=== PATIENT | male | born 1955 | race Caucasian/White ===

== ENCOUNTER 2020-03-02 13:37 | Inpatient (IN) | payer OTHER, SELFPAY ==
[~2020-03-02] VITALS: Ht 175.3 cm; Wt 117.5 kg
--- NOTE | 2020-03-02 14:05 | NUR ---
THIS IS A 65 YO MALE BIB [facility] FROM WORK AFTER FALLING OFF 4-5 FOOT LEDGE AND LANDED ON ANKLES. SPLINT TO RIGHT ANKLE IN PLACE BY MIKAYLA, CSM INTACT IN BILATERAL LE. C/O PAIN TO BOTH ANKLES, UNABLE TO TOLERATE WEIGHT. EQUAL STRENGTH BILATERALLY. DENIES HITTING HEAD, DENIES NECK OR BACK PAIN. BILATERAL LOWER LEG EDEMA PRESENT, PATIENT STATES IT HAS BEEN LIKE THAT FOR MONTHS, RECENT MRI DONE AT [facility] TO ANKLES, SENT HOME ON ANTI-INFLAMMATORIES. DENIES ANY OTHER MEDICAL PROBLEMS. PATIENT AT 88% ON RA WITH [facility], THEY PLACED HIM ON 2L NC, AT 94%. RA TEST HERE, PATIENT DESAT TO 88%, PLACED BACK ON 2L. [facility] GAVE 100MCG FENTANYL. ER PA TO ROOM FOR EVAL. MONITORING IN PLACE, DENA DENT AT THIS TIME. REPORT TO PURVI BATISTA
--- NOTE | 2020-03-02 14:07 | NUR ---
REPORT RECIEVED FROM JOSELINE RN, ASSUMED CARE OF PT AT THIS TIME. TRIAL PT ON RA, PT SATING 86%, PLANNED ON 2.5L AT THIS TIME NOW SATING 96%, ERP MADE AWARE
[2020-03-02] MEDS ORDERED: MORPHINE SULFATE 4 MG/ML, 1ML ONE ×2 (15:13→18:33)
[2020-03-02] MEDS: MORPHINE SULFATE 4 MG/ML, 1ML IVPush PRN ×2 (15:26→18:38)
--- NOTE | 2020-03-02 15:27 | NUR ---
ERMD IN TO UPDATE PT ON POC, ORTHO TO BE CONSULTED. VSS, PT MEDICATED FOR PAIN VIA MAR
[2020-03-02] MEDS ORDERED: SODIUM CHLORIDE FLUSH 10ML SYR IVF ONE (16:00)
--- NOTE | 2020-03-02 16:15 | NUR ---
EMT IN TO APPLY SPLINTS TO BLE
[2020-03-02 16:21] LABS: ALBUMIN 3.8 g/dL (3.4-5.0); ANION GAP 4 mmol/L (5-15); CALCIUM 8.5 mg/dL (8.5-10.1); CHLORIDE 110 mmol/L (98-107)
[2020-03-02 16:26] LABS: ALANINE AMINOTRANSFERASE 30 U/L (12-78); ALKALINE PHOSPHATASE 90 U/L (45-117); BILIRUBIN,TOTAL 0.8 mg/dL (0.2-1.0); CREATININE 0.98 mg/dL (0.7-1.3)
[2020-03-02 17:00] LABS: BASOPHILS % (AUTO) 1 % (0-1); EOSINOPHILS % (AUTO) 1 % (1-7); LYMPHOCYTES % (AUTO) 6 % (22-44); MEAN CORPUSCULAR HEMOGLOBIN 28.9 pg (27.5-34.5); MEAN CORPUSCULAR HGB CONC 31.8 g/dL (33.2-36.2); MEAN PLATELET VOLUME 7.5 fL (7.4-10.4); MONOCYTES % (AUTO) 6 % (2-9); NEUTROPHILS % (AUTO) 86 % (42-75); PLATELET COUNT 250 x10^3/uL (130-400); RED BLOOD COUNT 5.16 x10^6/uL (4.38-5.82); RED CELL DISTRIBUTION WIDTH 14.2 % (9.4-14.8)
[2020-03-02] MEDS ORDERED: OXYcodone/APAP 10/325MG TABLET PO ONE (17:00)
[2020-03-02 17:09] LABS: MD SCAN
[2020-03-02] MEDS ORDERED: OXYcodone/APAP 10/325MG TABLET ONE (17:20)
--- NOTE | 2020-03-02 18:22 | NUR ---
HEALS FLOATED WITH PILLOWS FOR COMFORT. VSS, NAD NOTED
--- NOTE | 2020-03-02 18:52 | NUR ---
REPORT RECEIVED FROM PURVI BATISTA. PLAN OF CARE DISCUSSED
[2020-03-02] MEDS ORDERED: LABETALOL 5MG/ML, 20ML IVPush PRN (19:00)
[2020-03-02] MEDS ORDERED: ACETAMINOPHEN 325 MG TABLET PO PRN (19:00)
[2020-03-02] MEDS ORDERED: SODIUM CHLORIDE 0.9% 1,000 ML IV SCH (19:00)
--- NOTE | 2020-03-02 19:35 | NUR ---
REPORT GIVEN TO PURVI HARMON. PLAN OF CARE DISCUSSED
[2020-03-02 20:57] VITALS: BP 136/77
[2020-03-02] MEDS ORDERED: NICOTINE 21 MG/24 HR PATCH.TD24 TD ONE (21:00)
[2020-03-02] MEDS: HYDROcodone/APAP 5/325 TABLET PO PRN (21:02)
[2020-03-02 21:08] VITALS: BP 140/85
[2020-03-02] MEDS: morphine SULFATE 10 MG/ML, 1ML IVPush PRN (21:31)
[2020-03-02] MEDS: HEPARIN 5,000 UNITS/ML, 1ML SQ SCH (21:42)
[2020-03-02 22:48] LABS: MICROSCOPIC NOT IND
[2020-03-03 01:24] VITALS: BP 130/77
[2020-03-03] MEDS: HYDROcodone/APAP 5/325 TABLET PO PRN ×2 (01:27→06:24)
[2020-03-03 03:19] VITALS: BP 118/68
[2020-03-03 06:07] LABS: BASOPHILS % (AUTO) 1 % (0-1); EOSINOPHILS % (AUTO) 1 % (1-7); LYMPHOCYTES % (AUTO) 9 % (22-44); MEAN CORPUSCULAR HEMOGLOBIN 29.5 pg (27.5-34.5); MEAN CORPUSCULAR HGB CONC 32.5 g/dL (33.2-36.2); MEAN PLATELET VOLUME 6.9 fL (7.4-10.4); MONOCYTES % (AUTO) 12 % (2-9); NEUTROPHILS % (AUTO) 77 % (42-75); PLATELET COUNT 240 x10^3/uL (130-400); RED BLOOD COUNT 4.67 x10^6/uL (4.38-5.82)
[2020-03-03 06:10] LABS: ANION GAP 5 mmol/L (5-15); CALCIUM 8.3 mg/dL (8.5-10.1); CHLORIDE 107 mmol/L (98-107); CREATININE 0.79 mg/dL (0.7-1.3)
[2020-03-03 06:17] LABS: MD NO
[2020-03-03] MEDS: HEPARIN 5,000 UNITS/ML, 1ML SQ SCH ×3 (06:25→20:33)
[2020-03-03 06:34] VITALS: BP 124/70
[2020-03-03] MEDS: morphine SULFATE 10 MG/ML, 1ML IVPush PRN ×4 (07:39→20:33)
[2020-03-03] MEDS ORDERED: NICOTINE 14MG/24 HR PATCH.TD24 TD SCH (09:00)
[2020-03-03] MEDS: FUROSEMIDE 20 MG TABLET PO SCH (09:41)
[2020-03-03] MEDS ORDERED: POLYETHYLENE GLYCOL 17 GM PACKET PO PRN (11:00)
[2020-03-03 15:03] VITALS: BP 130/70
[2020-03-03 19:03] VITALS: BP 149/81
[2020-03-03] MEDS: SENNA/DOCUSATE TABLET PO SCH (20:33)
[2020-03-03] MEDS: NICOTINE 21 MG/24 HR PATCH.TD24 TD SCH (21:52)
[2020-03-03] MEDS ORDERED: AZITHROMYCIN 500 MG in SODIUM CHLORIDE 0.9% 250 ML IV SCH (23:30)
[2020-03-03] MEDS ORDERED: CEFTRIAXONE PMX 1GM/50ML 50 ML IV SCH (23:30)
[2020-03-04 01:00] VITALS: BP 143/88
[2020-03-04] MEDS: HEPARIN 5,000 UNITS/ML, 1ML SQ SCH (05:19)
[2020-03-04 06:25] VITALS: BP 141/48
[2020-03-04 07:35] LABS: BASOPHILS % (AUTO) 0 % (0-1); EOSINOPHILS % (AUTO) 0 % (1-7); LYMPHOCYTES % (AUTO) 3 % (22-44); MEAN CORPUSCULAR HEMOGLOBIN 29.5 pg (27.5-34.5); MEAN CORPUSCULAR HGB CONC 32.2 g/dL (33.2-36.2); MEAN PLATELET VOLUME 6.8 fL (7.4-10.4); MONOCYTES % (AUTO) 10 % (2-9); NEUTROPHILS % (AUTO) 88 % (42-75); PLATELET COUNT 237 x10^3/uL (130-400); RED BLOOD COUNT 4.91 x10^6/uL (4.38-5.82); RED CELL DISTRIBUTION WIDTH 14.4 % (9.4-14.8)
[2020-03-04 07:38] LABS: ALANINE AMINOTRANSFERASE 26 U/L (12-78); ALBUMIN 3.5 g/dL (3.4-5.0); ANION GAP 5 mmol/L (5-15); CALCIUM 8.4 mg/dL (8.5-10.1); CHLORIDE 101 mmol/L (98-107); CREATININE 1.06 mg/dL (0.7-1.3)
[2020-03-04 07:40] LABS: ALKALINE PHOSPHATASE 84 U/L (45-117); BILIRUBIN,TOTAL 1.6 mg/dL (0.2-1.0); TOTAL PROTEIN 8.6 g/dL (6.4-8.2)
[2020-03-04] MEDS: AMPICILLIN/SULBACTAM 3 GM in SODIUM CHLORIDE 0.9% 100 ML IV SCH ×3 (08:12→20:55)
[2020-03-04] MEDS: FUROSEMIDE 20 MG TABLET PO SCH (08:13)
[2020-03-04] MEDS: SENNA/DOCUSATE TABLET PO SCH ×2 (08:14→21:23)
[2020-03-04 08:28] LABS: MD SCAN
[2020-03-04] MEDS: LACTOBACILLUS CHEW TABLET PO SCH ×3 (11:00→21:22)
[2020-03-04] MEDS: ENOXAPARIN 30 MG/0.3 ML SQ SCH ×2 (12:09→21:23)
[2020-03-04] MEDS: ONDANSETRON 2MG/ML, 2ML IVPush PRN (12:12)
[2020-03-04 15:32] LABS: C-REACTIVE PROTEIN, QUANT > 19.00 mg/dL (0.02-0.49)
[2020-03-04] MEDS: MIDODRINE 5 MG TABLET PO SCH ×2 (16:33→21:23)
[2020-03-04] MEDS ORDERED: PHARMACOKINETIC CONSULTATION MC ONE (18:00)
[2020-03-04] MEDS ORDERED: PHARMACOKINETIC MONITORING MC PRN (18:00)
[2020-03-04] MEDS ORDERED: VANCOMYCIN PER PHARMACY MC PRN (18:00)
[2020-03-04] MEDS ORDERED: VANCOMYCIN 3,000 MG in SODIUM CHLORIDE 0.9% 500 ML IV ONE (18:00)
[2020-03-04 20:25] LABS: MICROSCOPIC AUTO
[2020-03-04] MEDS: NICOTINE 21 MG/24 HR PATCH.TD24 TD SCH (21:23)
[2020-03-05] MEDS: AMPICILLIN/SULBACTAM 3 GM in SODIUM CHLORIDE 0.9% 100 ML IV SCH ×4 (02:18→21:35)
[2020-03-05] MEDS: morphine SULFATE 10 MG/ML, 1ML IVPush PRN (02:33)
[2020-03-05 04:03] VITALS: BP 149/79
[2020-03-05 04:59] LABS: BASOPHILS % (AUTO) 1 % (0-1); EOSINOPHILS % (AUTO) 0 % (1-7); LYMPHOCYTES % (AUTO) 7 % (22-44); MEAN CORPUSCULAR HEMOGLOBIN 29.8 pg (27.5-34.5); MEAN PLATELET VOLUME 6.9 fL (7.4-10.4); MONOCYTES % (AUTO) 11 % (2-9); NEUTROPHILS % (AUTO) 82 % (42-75); PLATELET COUNT 199 x10^3/uL (130-400); RED BLOOD COUNT 4.28 x10^6/uL (4.38-5.82); RED CELL DISTRIBUTION WIDTH 13.8 % (9.4-14.8)
[2020-03-05] MEDS: LACTOBACILLUS CHEW TABLET PO SCH ×4 (05:15→19:23)
[2020-03-05 05:17] LABS: ANION GAP 2 mmol/L (5-15); CALCIUM 8.2 mg/dL (8.5-10.1); CHLORIDE 100 mmol/L (98-107); CREATININE 0.79 mg/dL (0.7-1.3)
[2020-03-05 06:04] LABS: MD SCAN
[2020-03-05] MEDS: LORATADINE 10 MG TABLET PO SCH (08:51)
[2020-03-05] MEDS: THIAMINE 100MG TABLET PO SCH (08:51)
[2020-03-05] MEDS: SENNA/DOCUSATE TABLET PO SCH ×3 (08:51→21:42)
[2020-03-05] MEDS: LIDODERM 5% PATCH TD SCH (08:53)
[2020-03-05] MEDS: FLUTICASONE NASAL SPRAY 16GM NAS SCH (08:53)
[2020-03-05] MEDS ORDERED: LIDODERM 5% PATCH TD SCH (09:00)
[2020-03-05] MEDS ORDERED: FUROSEMIDE 40 MG/4 ML ONE (10:49)
[2020-03-05] MEDS: ENOXAPARIN 30 MG/0.3 ML SQ SCH ×2 (10:53→21:36)
[2020-03-05] MEDS ORDERED: FUROSEMIDE 40 MG/4 ML IV ONE (11:00)
[2020-03-05 12:15] LABS: HCT (SEDRATE) 38.7 % (39.2-51.8)
[2020-03-05 14:17] VITALS: BP 114/74
[2020-03-05] MEDS: VANCOMYCIN 2,000 MG in SODIUM CHLORIDE 0.9% 500 ML IV SCH (16:09)
[2020-03-05 20:08] VITALS: BP 123/74
[2020-03-05] MEDS: LIDODERM REMOVE PATCH NOTE XX SCH (21:00)
[2020-03-05] MEDS: NICOTINE 21 MG/24 HR PATCH.TD24 TD SCH (21:36)
[2020-03-06 00:46] VITALS: BP 108/64
[2020-03-06] MEDS: ONDANSETRON 2MG/ML, 2ML IVPush PRN (01:41)
[2020-03-06] MEDS: AMPICILLIN/SULBACTAM 3 GM in SODIUM CHLORIDE 0.9% 100 ML IV SCH ×3 (04:57→17:30)
[2020-03-06 05:52] LABS: BASOPHILS % (AUTO) 0 % (0-1); EOSINOPHILS % (AUTO) 2 % (1-7); LYMPHOCYTES % (AUTO) 6 % (22-44); MEAN CORPUSCULAR HEMOGLOBIN 29.7 pg (27.5-34.5); MEAN CORPUSCULAR HGB CONC 33.1 g/dL (33.2-36.2); MEAN PLATELET VOLUME 7.2 fL (7.4-10.4); MONOCYTES % (AUTO) 9 % (2-9); NEUTROPHILS % (AUTO) 82 % (42-75); PLATELET COUNT 218 x10^3/uL (130-400); RED CELL DISTRIBUTION WIDTH 13.5 % (9.4-14.8)
[2020-03-06 05:57] LABS: MD NO
[2020-03-06] MEDS: LACTOBACILLUS CHEW TABLET PO SCH ×4 (06:00→21:43)
[2020-03-06 06:04] LABS: CHLORIDE 99 mmol/L (98-107)
[2020-03-06 06:13] LABS: ANION GAP 3 mmol/L (5-15); CALCIUM 8.5 mg/dL (8.5-10.1); CREATININE 0.77 mg/dL (0.7-1.3)
[2020-03-06] MEDS: VANCOMYCIN 2,000 MG in SODIUM CHLORIDE 0.9% 500 ML IV SCH ×2 (06:40→19:50)
[2020-03-06 08:17] VITALS: BP 126/85
[2020-03-06] MEDS: SENNA/DOCUSATE TABLET PO SCH ×2 (08:29→21:42)
[2020-03-06] MEDS: METHYLNALTREXONE 12 MG/0.6 ML SYR SQ SCH (08:30)
[2020-03-06] MEDS: POLYETHYLENE GLYCOL 17 GM PACKET PO SCH ×3 (08:30→21:00)
[2020-03-06] MEDS: LORATADINE 10 MG TABLET PO SCH (08:30)
[2020-03-06] MEDS: THIAMINE 100MG TABLET PO SCH (08:30)
[2020-03-06] MEDS: LIDODERM 5% PATCH TD SCH (08:31)
[2020-03-06] MEDS: FLUTICASONE NASAL SPRAY 16GM NAS SCH (08:32)
[2020-03-06] MEDS: ENOXAPARIN 30 MG/0.3 ML SQ SCH (11:53)
[2020-03-06 13:49] VITALS: BP 128/74
[2020-03-06 19:15] VITALS: BP 132/76
[2020-03-06] MEDS: LIDODERM REMOVE PATCH NOTE XX SCH (21:00)
[2020-03-06] MEDS: NICOTINE 21 MG/24 HR PATCH.TD24 TD SCH (21:42)
[2020-03-07] MEDS: AMPICILLIN/SULBACTAM 3 GM in SODIUM CHLORIDE 0.9% 100 ML IV SCH ×4 (00:20→18:07)
[2020-03-07] MEDS: ENOXAPARIN 30 MG/0.3 ML SQ SCH ×2 (00:30→11:32)
[2020-03-07 02:48] VITALS: BP 114/72
[2020-03-07] MEDS: FLUTICASONE NASAL SPRAY 16GM NAS SCH (04:19)
[2020-03-07 05:13] LABS: BASOPHILS % (AUTO) 1 % (0-1); EOSINOPHILS % (AUTO) 3 % (1-7); LYMPHOCYTES % (AUTO) 8 % (22-44); MEAN CORPUSCULAR HEMOGLOBIN 29.2 pg (27.5-34.5); MEAN CORPUSCULAR HGB CONC 32.6 g/dL (33.2-36.2); MONOCYTES % (AUTO) 8 % (2-9); NEUTROPHILS % (AUTO) 81 % (42-75); PLATELET COUNT 222 x10^3/uL (130-400); RED BLOOD COUNT 4.25 x10^6/uL (4.38-5.82); RED CELL DISTRIBUTION WIDTH 13.8 % (9.4-14.8)
[2020-03-07 05:17] LABS: ANION GAP 3 mmol/L (5-15); CALCIUM 8.8 mg/dL (8.5-10.1); CHLORIDE 103 mmol/L (98-107); CREATININE 0.76 mg/dL (0.7-1.3)
[2020-03-07 05:26] LABS: MD NO
[2020-03-07 06:25] VITALS: BP 124/73
[2020-03-07] MEDS: LACTOBACILLUS CHEW TABLET PO SCH ×4 (07:44→20:18)
[2020-03-07] MEDS ORDERED: MAGNESIUM CITRATE 300ML ORAL SOL PO ONE (08:00)
[2020-03-07] MEDS: SENNA/DOCUSATE TABLET PO SCH ×2 (08:04→21:00)
[2020-03-07] MEDS: VANCOMYCIN 2,000 MG in SODIUM CHLORIDE 0.9% 500 ML IV SCH ×2 (08:04→20:18)
[2020-03-07] MEDS: LORATADINE 10 MG TABLET PO SCH (08:04)
[2020-03-07] MEDS: POLYETHYLENE GLYCOL 17 GM PACKET PO SCH ×2 (08:05→21:00)
[2020-03-07] MEDS: THIAMINE 100MG TABLET PO SCH (08:05)
[2020-03-07] MEDS: LIDODERM 5% PATCH TD SCH (08:05)
[2020-03-07 13:10] VITALS: BP 144/87
[2020-03-07] MEDS: FUROSEMIDE 40 MG/4 ML IV SCH (16:41)
[2020-03-07] MEDS: CETIRIZINE 10 MG TABLET PO SCH (16:41)
[2020-03-07] MEDS ORDERED: HOLD MEDICATION MC PRN (18:30)
[2020-03-07] MEDS: NICOTINE 21 MG/24 HR PATCH.TD24 TD SCH (20:18)
[2020-03-07 20:42] VITALS: BP 125/80
[2020-03-07] MEDS: LIDODERM REMOVE PATCH NOTE XX SCH (21:00)
[2020-03-07] MEDS ORDERED: ENOXAPARIN 30 MG/0.3 ML SQ ONE (23:30)
[2020-03-08] MEDS: FLUTICASONE NASAL SPRAY 16GM NAS SCH (00:16)
[2020-03-08] MEDS: AMPICILLIN/SULBACTAM 3 GM in SODIUM CHLORIDE 0.9% 100 ML IV SCH ×4 (00:19→20:30)
[2020-03-08] MEDS ORDERED: SODIUM CHLORIDE NASAL SPRAY 45ML BOTTLE NAS PRN (02:00)
[2020-03-08 02:17] VITALS: BP 126/76
[2020-03-08] MEDS: OXYMETAZOLINE NASAL SPRAY 0.05%, 15ML NAS SCH ×3 (02:26→21:00)
[2020-03-08] MEDS: LACTOBACILLUS CHEW TABLET PO SCH ×4 (05:53→22:14)
[2020-03-08 06:25] LABS: BASOPHILS % (AUTO) 1 % (0-1); EOSINOPHILS % (AUTO) 2 % (1-7); LYMPHOCYTES % (AUTO) 8 % (22-44); MEAN CORPUSCULAR HEMOGLOBIN 29.5 pg (27.5-34.5); MEAN PLATELET VOLUME 7.2 fL (7.4-10.4); MONOCYTES % (AUTO) 9 % (2-9); NEUTROPHILS % (AUTO) 80 % (42-75); PLATELET COUNT 275 x10^3/uL (130-400); RED BLOOD COUNT 4.61 x10^6/uL (4.38-5.82); RED CELL DISTRIBUTION WIDTH 13.4 % (9.4-14.8)
[2020-03-08 06:34] LABS: MD NO
[2020-03-08 06:40] LABS: CHLORIDE 102 mmol/L (98-107)
[2020-03-08 07:00] LABS: ANION GAP 4 mmol/L (5-15); CALCIUM 8.6 mg/dL (8.5-10.1); CREATININE 0.78 mg/dL (0.7-1.3)
[2020-03-08] MEDS: SENNA/DOCUSATE TABLET PO SCH ×2 (08:20→22:14)
[2020-03-08] MEDS: CETIRIZINE 10 MG TABLET PO SCH (08:20)
[2020-03-08] MEDS: THIAMINE 100MG TABLET PO SCH (08:20)
[2020-03-08] MEDS: FUROSEMIDE 40 MG/4 ML IV SCH ×2 (08:21→17:00)
[2020-03-08] MEDS: VANCOMYCIN 2,000 MG in SODIUM CHLORIDE 0.9% 500 ML IV SCH ×2 (08:21→22:14)
[2020-03-08] MEDS: METHYLNALTREXONE 12 MG/0.6 ML SYR SQ SCH (08:21)
[2020-03-08] MEDS: POLYETHYLENE GLYCOL 17 GM PACKET PO SCH ×2 (08:24→21:00)
[2020-03-08] MEDS: LIDODERM 5% PATCH TD SCH (09:00)
[2020-03-08 09:01] VITALS: BP 146/82
[2020-03-08 13:38] VITALS: BP 134/83
[2020-03-08] MEDS ORDERED: CHLORHEXIDINE 15 ML UDC ONE (15:07)
[2020-03-08] MEDS ORDERED: BUPIVACAINE/PF 0.5% ONE (15:20)
[2020-03-08] MEDS ORDERED: MIDAZOLAM 1 MG/ML, 2ML ONE (15:23)
[2020-03-08] MEDS ORDERED: FENTANYL PF 100 MCG/2ML ONE (15:23)
[2020-03-08] MEDS ORDERED: ONDANSETRON 2MG/ML, 2ML IVPush PRN (15:30)
[2020-03-08] MEDS ORDERED: PROMETHAZINE 25 MG/ML, 1ML IVPush PRN (15:30)
[2020-03-08] MEDS ORDERED: OXYcodone 5 MG/5 ML ORAL.SOL UDC PO PRN (15:30)
[2020-03-08] MEDS ORDERED: CHLORHEXIDINE 15 ML UDC MM ONE (15:30)
[2020-03-08] MEDS ORDERED: LACTATED RINGERS 1,000 ML IV SCH (15:30)
[2020-03-08] MEDS ORDERED: ACETAMINOPHEN 325 MG TABLET PO PRN (15:30)
[2020-03-08] MEDS ORDERED: MEPERIDINE/PF 25MG/0.5ML IVPush PRN (15:30)
[2020-03-08] MEDS ORDERED: EPHEDRINE 50 MG/ML, 1ML IVPush PRN (15:30)
[2020-03-08] MEDS ORDERED: HYDROmorphone 1 MG/ML, 1ML INJ IVPush PRN (15:30)
[2020-03-08] MEDS ORDERED: FENTANYL PF 100 MCG/2ML IV PRN (15:30)
[2020-03-08] MEDS ORDERED: hydrALAzine 20 MG/ML, 1ML IV PRN (15:30)
[2020-03-08] MEDS ORDERED: LABETALOL 5MG/ML, 20ML IV PRN (15:30)
[2020-03-08] MEDS ORDERED: KETOROLAC 30 MG/1 ML ONE (15:56)
[2020-03-08] MEDS ORDERED: PROPOFOL 10 MG/ML, 20ML ONE (16:45)
[2020-03-08] MEDS ORDERED: ONDANSETRON 2MG/ML, 2ML ONE (16:45)
[2020-03-08] MEDS ORDERED: CEFAZOLIN 1,000 MG ONE (16:45)
[2020-03-08] MEDS ORDERED: SUCCINYLCHOLINE 20 MG/ML, 10ML ONE (16:45)
[2020-03-08] MEDS ORDERED: DEXAMETHASONE 4 MG/ML, 1ML ONE (16:45)
[2020-03-08 20:10] VITALS: BP 124/88
[2020-03-08] MEDS: LIDODERM REMOVE PATCH NOTE XX SCH (21:00)
[2020-03-08] MEDS: NICOTINE 21 MG/24 HR PATCH.TD24 TD SCH (22:17)
[2020-03-09 00:14] VITALS: BP 145/85
[2020-03-09] MEDS: AMPICILLIN/SULBACTAM 3 GM in SODIUM CHLORIDE 0.9% 100 ML IV SCH ×4 (02:23→20:15)
[2020-03-09 03:31] VITALS: BP 121/76
[2020-03-09] MEDS: LACTOBACILLUS CHEW TABLET PO SCH ×4 (05:35→20:16)
[2020-03-09 07:34] LABS: BASOPHILS % (AUTO) 0 % (0-1); EOSINOPHILS % (AUTO) 0 % (1-7); LYMPHOCYTES % (AUTO) 3 % (22-44); MEAN CORPUSCULAR HEMOGLOBIN 29.3 pg (27.5-34.5); MEAN CORPUSCULAR HGB CONC 32.3 g/dL (33.2-36.2); MEAN PLATELET VOLUME 7.2 fL (7.4-10.4); MONOCYTES % (AUTO) 5 % (2-9); NEUTROPHILS % (AUTO) 92 % (42-75); PLATELET COUNT 337 x10^3/uL (130-400); RED BLOOD COUNT 4.39 x10^6/uL (4.38-5.82); RED CELL DISTRIBUTION WIDTH 13.4 % (9.4-14.8)
[2020-03-09 07:41] LABS: CREATININE 0.92 mg/dL (0.7-1.3)
[2020-03-09 07:54] LABS: CHLORIDE 103 mmol/L (98-107)
[2020-03-09 08:03] LABS: ANION GAP 3 mmol/L (5-15)
[2020-03-09 08:13] LABS: MD SCAN
[2020-03-09 08:49] VITALS: BP 131/79
[2020-03-09] MEDS: FLUTICASONE NASAL SPRAY 16GM NAS SCH (08:59)
[2020-03-09] MEDS: POLYETHYLENE GLYCOL 17 GM PACKET PO SCH ×3 (09:00→21:00)
[2020-03-09] MEDS: LIDODERM 5% PATCH TD SCH (09:00)
[2020-03-09] MEDS: OXYMETAZOLINE NASAL SPRAY 0.05%, 15ML NAS SCH ×2 (09:00→20:16)
[2020-03-09] MEDS: SENNA/DOCUSATE TABLET PO SCH ×2 (09:01→20:16)
[2020-03-09] MEDS: CETIRIZINE 10 MG TABLET PO SCH (09:01)
[2020-03-09] MEDS: THIAMINE 100MG TABLET PO SCH (09:01)
[2020-03-09] MEDS: VANCOMYCIN 2,000 MG in SODIUM CHLORIDE 0.9% 500 ML IV SCH (10:13)
[2020-03-09 14:30] VITALS: BP 124/73
[2020-03-09] MEDS: FUROSEMIDE 40 MG/4 ML IV SCH (17:24)
[2020-03-09] MEDS: LIDODERM REMOVE PATCH NOTE XX SCH (20:16)
[2020-03-09] MEDS: NICOTINE 21 MG/24 HR PATCH.TD24 TD SCH (20:16)
[2020-03-09 20:33] VITALS: BP 124/70
[2020-03-10] MEDS: VANCOMYCIN 2,000 MG in SODIUM CHLORIDE 0.9% 500 ML IV SCH (00:08)
[2020-03-10 02:39] VITALS: BP 124/75
[2020-03-10] MEDS: AMPICILLIN/SULBACTAM 3 GM in SODIUM CHLORIDE 0.9% 100 ML IV SCH ×4 (02:49→21:04)
[2020-03-10] MEDS: LACTOBACILLUS CHEW TABLET PO SCH ×4 (05:30→21:04)
[2020-03-10] MEDS: morphine SULFATE 10 MG/ML, 1ML IVPush PRN (05:30)
[2020-03-10 05:52] LABS: BASOPHILS % (AUTO) 1 % (0-1); EOSINOPHILS % (AUTO) 2 % (1-7); LYMPHOCYTES % (AUTO) 10 % (22-44); MEAN CORPUSCULAR HEMOGLOBIN 28.8 pg (27.5-34.5); MEAN CORPUSCULAR HGB CONC 32.2 g/dL (33.2-36.2); MEAN PLATELET VOLUME 7.1 fL (7.4-10.4); MONOCYTES % (AUTO) 7 % (2-9); NEUTROPHILS % (AUTO) 82 % (42-75); PLATELET COUNT 335 x10^3/uL (130-400); RED BLOOD COUNT 4.32 x10^6/uL (4.38-5.82); RED CELL DISTRIBUTION WIDTH 13.5 % (9.4-14.8)
[2020-03-10 06:11] LABS: CHLORIDE 106 mmol/L (98-107)
[2020-03-10 06:21] LABS: ANION GAP 4 mmol/L (5-15); CALCIUM 8.8 mg/dL (8.5-10.1); CREATININE 0.81 mg/dL (0.7-1.3)
[2020-03-10 06:25] LABS: MD NO
[2020-03-10 07:20] VITALS: BP 116/70
[2020-03-10] MEDS: METHYLNALTREXONE 12 MG/0.6 ML SYR SQ SCH (08:52)
[2020-03-10] MEDS: FUROSEMIDE 40 MG/4 ML IV SCH ×2 (08:52→16:40)
[2020-03-10] MEDS: OXYMETAZOLINE NASAL SPRAY 0.05%, 15ML NAS SCH ×2 (08:53→21:11)
[2020-03-10] MEDS: THIAMINE 100MG TABLET PO SCH (08:53)
[2020-03-10] MEDS: FLUTICASONE NASAL SPRAY 16GM NAS SCH (08:53)
[2020-03-10] MEDS: CETIRIZINE 10 MG TABLET PO SCH (08:53)
[2020-03-10] MEDS: LIDODERM 5% PATCH TD SCH (09:00)
[2020-03-10] MEDS: SENNA/DOCUSATE TABLET PO SCH ×2 (09:00→21:05)
[2020-03-10] MEDS: POLYETHYLENE GLYCOL 17 GM PACKET PO SCH ×2 (09:00→21:00)
[2020-03-10 13:42] VITALS: BP 117/68
[2020-03-10] MEDS ORDERED: SIMETHICONE 80 MG CHEW TAB PO PRN (15:00)
[2020-03-10 18:36] VITALS: BP 112/73
[2020-03-10] MEDS: LIDODERM REMOVE PATCH NOTE XX SCH (21:00)
[2020-03-10] MEDS: NICOTINE 21 MG/24 HR PATCH.TD24 TD SCH (21:05)
[2020-03-11 00:26] VITALS: BP 107/68
[2020-03-11] MEDS: AMPICILLIN/SULBACTAM 3 GM in SODIUM CHLORIDE 0.9% 100 ML IV SCH ×4 (01:56→22:17)
[2020-03-11] MEDS: LACTOBACILLUS CHEW TABLET PO SCH ×4 (06:33→20:39)
[2020-03-11] MEDS: FUROSEMIDE 40 MG/4 ML IV SCH ×2 (06:34→16:05)
[2020-03-11] MEDS: CETIRIZINE 10 MG TABLET PO SCH (08:24)
[2020-03-11] MEDS: FLUTICASONE NASAL SPRAY 16GM NAS SCH (08:24)
[2020-03-11] MEDS: THIAMINE 100MG TABLET PO SCH (08:24)
[2020-03-11] MEDS: OXYMETAZOLINE NASAL SPRAY 0.05%, 15ML NAS SCH ×2 (08:25→20:38)
[2020-03-11] MEDS: POLYETHYLENE GLYCOL 17 GM PACKET PO SCH ×2 (08:25→21:00)
[2020-03-11] MEDS: SENNA/DOCUSATE TABLET PO SCH ×2 (08:26→20:39)
[2020-03-11] MEDS: LIDODERM 5% PATCH TD SCH (08:26)
[2020-03-11 09:07] VITALS: BP 118/75
[2020-03-11 13:04] VITALS: BP 118/75
[2020-03-11] MEDS: NICOTINE 21 MG/24 HR PATCH.TD24 TD SCH (20:39)
[2020-03-11] MEDS: LIDODERM REMOVE PATCH NOTE XX SCH (21:00)
[2020-03-11 22:39] VITALS: BP 121/87
[2020-03-12 01:12] VITALS: BP 113/67
[2020-03-12] MEDS: AMPICILLIN/SULBACTAM 3 GM in SODIUM CHLORIDE 0.9% 100 ML IV SCH ×4 (04:24→22:14)
[2020-03-12] MEDS: LACTOBACILLUS CHEW TABLET PO SCH ×4 (05:23→19:53)
[2020-03-12] MEDS: OXYMETAZOLINE NASAL SPRAY 0.05%, 15ML NAS SCH ×2 (08:06→19:53)
[2020-03-12] MEDS: FLUTICASONE NASAL SPRAY 16GM NAS SCH (08:06)
[2020-03-12] MEDS: FUROSEMIDE 40 MG/4 ML IV SCH ×2 (08:06→16:06)
[2020-03-12] MEDS: POLYETHYLENE GLYCOL 17 GM PACKET PO SCH ×2 (08:07→19:53)
[2020-03-12] MEDS: METHYLNALTREXONE 12 MG/0.6 ML SYR SQ SCH (08:07)
[2020-03-12] MEDS: SENNA/DOCUSATE TABLET PO SCH ×2 (08:07→19:53)
[2020-03-12] MEDS: THIAMINE 100MG TABLET PO SCH (08:08)
[2020-03-12] MEDS: LIDODERM 5% PATCH TD SCH (08:08)
[2020-03-12] MEDS: CETIRIZINE 10 MG TABLET PO SCH (08:08)
[2020-03-12 09:26] VITALS: BP 112/72
[2020-03-12 13:08] VITALS: BP 119/75
[2020-03-12] MEDS: NICOTINE 21 MG/24 HR PATCH.TD24 TD SCH (19:52)
[2020-03-12] MEDS: LIDODERM REMOVE PATCH NOTE XX SCH (19:54)
[2020-03-12 20:00] VITALS: BP 112/73
[2020-03-13 01:20] VITALS: BP 128/82
[2020-03-13] MEDS: AMPICILLIN/SULBACTAM 3 GM in SODIUM CHLORIDE 0.9% 100 ML IV SCH ×4 (04:15→22:18)
[2020-03-13] MEDS: ENOXAPARIN 30 MG/0.3 ML SQ SCH ×2 (04:19→17:19)
[2020-03-13] MEDS: LACTOBACILLUS CHEW TABLET PO SCH ×4 (06:47→22:10)
[2020-03-13 07:44] VITALS: BP 122/78
[2020-03-13] MEDS: FUROSEMIDE 40 MG/4 ML IV SCH ×2 (07:46→17:19)
[2020-03-13] MEDS: SENNA/DOCUSATE TABLET PO SCH ×2 (08:24→22:17)
[2020-03-13] MEDS: THIAMINE 100MG TABLET PO SCH (08:24)
[2020-03-13] MEDS: CETIRIZINE 10 MG TABLET PO SCH (08:24)
[2020-03-13] MEDS: LIDODERM 5% PATCH TD SCH (08:25)
[2020-03-13] MEDS: FLUTICASONE NASAL SPRAY 16GM NAS SCH (08:25)
[2020-03-13] MEDS: POLYETHYLENE GLYCOL 17 GM PACKET PO SCH ×2 (08:25→22:12)
[2020-03-13] MEDS: OXYMETAZOLINE NASAL SPRAY 0.05%, 15ML NAS SCH ×2 (08:26→22:08)
[2020-03-13 14:04] VITALS: BP 117/62
[2020-03-13 20:03] VITALS: BP 123/79
[2020-03-13] MEDS: NICOTINE 21 MG/24 HR PATCH.TD24 TD SCH (22:10)
[2020-03-13] MEDS: LIDODERM REMOVE PATCH NOTE XX SCH (22:11)
[2020-03-14 01:59] VITALS: BP 116/78
[2020-03-14] MEDS: AMPICILLIN/SULBACTAM 3 GM in SODIUM CHLORIDE 0.9% 100 ML IV SCH ×3 (05:06→16:46)
[2020-03-14] MEDS: LACTOBACILLUS CHEW TABLET PO SCH ×3 (05:07→16:46)
[2020-03-14] MEDS: ENOXAPARIN 30 MG/0.3 ML SQ SCH ×2 (05:08→16:46)
[2020-03-14] MEDS: METHYLNALTREXONE 12 MG/0.6 ML SYR SQ SCH (08:00)
[2020-03-14] MEDS: FUROSEMIDE 40 MG/4 ML IV SCH ×2 (08:23→16:46)
[2020-03-14] MEDS: CETIRIZINE 10 MG TABLET PO SCH (08:24)
[2020-03-14] MEDS: OXYMETAZOLINE NASAL SPRAY 0.05%, 15ML NAS SCH (08:24)
[2020-03-14] MEDS: FLUTICASONE NASAL SPRAY 16GM NAS SCH (08:24)
[2020-03-14] MEDS: SENNA/DOCUSATE TABLET PO SCH (08:24)
[2020-03-14] MEDS: THIAMINE 100MG TABLET PO SCH (08:24)
[2020-03-14] MEDS: LIDODERM 5% PATCH TD SCH (08:25)
[2020-03-14] MEDS: POLYETHYLENE GLYCOL 17 GM PACKET PO SCH (08:25)
[2020-03-14 09:12] VITALS: BP 116/77
[2020-03-14 12:38] VITALS: BP 126/80
[2020-03-14] MEDS ORDERED: FLUT16SP24 NAS (14:15)
[2020-03-14] MEDS ORDERED: Senna/Docusate PO (14:15)
[2020-03-14] MEDS ORDERED: ACET325T26 PO (14:15)
[2020-03-14] MEDS ORDERED: HYDR-3241 PO (14:15)
[2020-03-14] MEDS ORDERED: FURO-93 PO (14:15)
[2020-03-14] MEDS ORDERED: ENOX30DI3 SQ (15:24)
== END 2020-03-14 17:38 | DRG 853 ==
LOC: ED 17:06 → EDIP 18:06 → 4NE 20:40 → CCU 03-04 11:44 → 4NE 03-05 13:57
PROVIDERS: ADMIT Family Medicine; ATTEND Family Medicine
PROC: 0QSL04Z Reposition Right Tarsal with Internal Fixation Device, Open Approach (ICD-10-PCS; 2020-03-08)
PROC: 3E0T3BZ Introduction of Anesthetic Agent into Peripheral Nerves and Plexi, Percutaneous Approach (ICD-10-PCS; 2020-03-08)
PROC: 0QSM04Z Reposition Left Tarsal with Internal Fixation Device, Open Approach (ICD-10-PCS; principal; 2020-03-08 17:00)
DX: A41.9 Sepsis, unspecified organism (principal); J96.02 Acute respiratory failure with hypercapnia; J96.01 Acute respiratory failure with hypoxia; J69.0 Pneumonitis due to inhalation of food and vomit; G93.41 Metabolic encephalopathy; E87.1 Hypo-osmolality and hyponatremia; J84.9 Interstitial pulmonary disease, unspecified; E46 Unspecified protein-calorie malnutrition; E87.2 Acidosis; I50.30 Unspecified diastolic (congestive) heart failure; S92.061A Displaced intraarticular fracture of right calcaneus, initial encounter for closed fracture; S92.062A Displaced intraarticular fracture of left calcaneus, initial encounter for closed fracture; Z20.828 Contact with and (suspected) exposure to other viral communicable diseases; E66.01 Morbid (severe) obesity due to excess calories; G47.30 Sleep apnea, unspecified; K59.00 Constipation, unspecified; G89.29 Other chronic pain; F17.210 Nicotine dependence, cigarettes, uncomplicated; F41.9 Anxiety disorder, unspecified; I11.0 Hypertensive heart disease with heart failure; F10.10 Alcohol abuse, uncomplicated; W18.39XA Other fall on same level, initial encounter; Y93.89 Activity, other specified; Y92.89 Other specified places as the place of occurrence of the external cause; Y99.8 Other external cause status; Z79.899 Other long term (current) drug therapy; Z68.38 Body mass index [BMI] 38.0-38.9, adult
CPT/HCPCS: 36415; 36600; 73564; 73590; 73610; 73650; 76000; 96374; 96375; 99285; S0020; 71045; 80048; 80053; 80202; 81001; 81003; 82803; 83605; 83615; 83880; 84443; 84550; 85025; 85651; 86140; 87040; 87081; 87635; 93005; 93306; 94660; C1713; G0378; J0295; J0456; J0690; J0696; J1100; J1644; J1650; J1885; J1940; J2250; J2405; J2704; J3010; J3370; J0330; J2270; J7030; J7040; J7050